=== PATIENT | male | born 2000 | race Two or more races ===

== ENCOUNTER 2023-03-24 12:55 | Emergency (ER) | payer MEDICAID, OTHER ==
[~2023-03-24] VITALS: Ht 167.6 cm; Wt 66.8 kg
[2023-03-24 14:49] VITALS: BP 126/77; PULSE 94; RESP 16; TEMP 98; O2SAT 97
[2023-03-24] MEDS ORDERED: TOB03OS OP (14:59)
[2023-03-24] MEDS ORDERED: FLUORESCEIN SOD OPTH TEST STRIP OP ONE (15:00)
== END 2023-03-24 15:19 | disposition home or self-care (01) ==
LOC: ER 12:55
DX: S05.01XA Injury of conjunctiva and corneal abrasion without foreign body, right eye, initial encounter (principal); Z88.8 Allergy status to other drugs, medicaments and biological substances; X58.XXXA Exposure to other specified factors, initial encounter; Y93.89 Activity, other specified; Y92.89 Other specified places as the place of occurrence of the external cause; Y99.8 Other external cause status